=== PATIENT | male | born 2000 | race Hispanic/Latino ===

== ENCOUNTER → 2020-02-20 | Outpatient (CLI) | payer OTHER | LOC: SLEEP 18:01 | PROVIDERS: ATTEND Otolaryngology | DX: G47.33 Obstructive sleep apnea (adult) (pediatric) (principal); Z01.812 Encounter for preprocedural laboratory examination; Z20.828 Contact with and (suspected) exposure to other viral communicable diseases | CPT/HCPCS: 95810; U0002 ==